=== PATIENT | male | born 1990 | race Caucasian/White ===

== ENCOUNTER 2020-10-15 07:46 | Emergency (ER) | payer OTHER ==
[~2020-10-15] VITALS: Ht 177.8 cm; Wt 79.4 kg
[2020-10-15] MEDS ORDERED: ZOFRAN4 MG PO (08:06)
[2020-10-15] MEDS ORDERED: HYDROXYZINE HCL25 MG PO (08:07)
[2020-10-15] MEDS ORDERED: OMEPRAZOLE20 MG PO (08:07)
[2020-10-15] MEDS ORDERED: TRAZODONE HCL50 MG PO (08:08)
[2020-10-15] MEDS ORDERED: MULTI VITAMIN1 EACH PO (08:08)
[2020-10-15] MEDS ORDERED: VITAMIN B-1100 M1 PO (08:08)
[2020-10-15] MEDS ORDERED: FOLIC ACID1 MG PO (08:09)
[2020-10-15] MEDS ORDERED: FLUOXETINE HCL20 MG PO (08:09)
--- OUTSIDE RECORDS SUMMARY | 2020-10-15 09:00 | XMS ---
PreManage Notification: HARINI SUAREZ Security Chha Events No recent Security Events currently on file CRITERIA MET - [facility] - 2 Visits in 30 Days CARE PROVIDERS JUSTIN OSEI Nurse Practitioner: Family Current PHONE: [phone] Jeremias has no Care Guidelines for this patient. Kamla VISIT COUNT (12 MO.) [facility] Wilfredo Palmer[address] TOTAL 4 NOTE: Visits indicate total known visits. ED/UCC VISIT TRACKING (12 MO.) 10/15/2020 07:47 [facility]OS[facility] MIGU[facility] TYPE: Emergency COMPLAINT: - VOMITING, WITHDRAWALS 10/11/2020 13:05 [facility] TYPE: Emergency DIAGNOSES: 0. MHE 0. DETOX 07/22/2020 09:51 [facility] TYPE: Emergency DIAGNOSES: 0. COVID SYMPTOMS 11/02/2019 07:50 [facility] DIAGNOSES: 0. RIGHT WRIST PAIN INPATIENT VISIT TRACKING (12 MO.) No inpatient visits to display in this time frame [email or web address]
== END 2020-10-15 10:34 | disposition home or self-care (01) ==
LOC: ED 07:46
DX: R11.2 Nausea with vomiting, unspecified (principal); Z87.891 Personal history of nicotine dependence; Z79.899 Other long term (current) drug therapy
CPT/HCPCS: 80053; 83690; 85025; 96374; 99284-25; J1630; J1885; J7030